=== PATIENT | female | born 1975 | race African-American/Black ===

== ENCOUNTER → 2016-07-03 | Outpatient (CLI) | payer OTHER ==
--- NOTE | 2016-07-03 13:14 | KCIC ---
PROCEDURE Two-view chest dated 07/03/2016. HISTORY History of rheumatoid arthritis. Evaluate multisystem involvement. TECHNIQUE PA and lateral views obtained. COMPARISON None. FINDINGS Heart and mediastinal contours within normal limits. Lungs are clear without focal consolidation. Vascular interstitium within normal limits. No pleural effusion or pneumothorax. Vague nodular densities at the right and left mid zone laterally seen only on the PA view. Few scattered calcified granuloma. IMPRESSION Vague nodular densities in the right and left midzone, indeterminate in etiology. Short-term followup chest x-ray or chest CT to better evaluate. Electronically signed by: Michael Lubin (Jul 03, 2016 13:12:54)
== END | disposition home or self-care (01) ==
LOC: KCIC 12:35
PROVIDERS: ATTEND Family Medicine
DX: M05.79 Rheumatoid arthritis with rheumatoid factor of multiple sites without organ or systems involvement (principal)
CPT/HCPCS: 71020